=== PATIENT | female | born 2000 | race African-American/Black ===

== ENCOUNTER 2021-05-01 13:53 | Emergency (ER) | payer OTHER ==
[~2021-05-01] VITALS: Ht 160 cm; Wt 68.0 kg
[2021-05-01 14:15] LABS: URINE BILIRUBIN NEGATIVE (Negative); URINE BLOOD 2+ (Negative); URINE CLARITY CLEAR; URINE COLOR YELLOW; URINE GLUCOSE-RANDOM* NEGATIVE (Negative); URINE KETONES NEGATIVE (Negative); URINE LEUKOCYTES-REFLEX 1+ (Negative); URINE NITRITE-REFLEX NEGATIVE (Negative); URINE PROTEIN (DIPSTICK) NEGATIVE (Negative); URINE SPECIFIC GRAVITY >= 1.030 (1.005-1.035); URINE UROBILINOGEN 0.2 E.U./dl (0.2-1.0)
[2021-05-01 14:32] LABS: SQUAMOUS 4-10 Moderate /LPF (0-3); URINE WBC-REFLEX 0-5 Rare /HPF (0-5)
[2021-05-01 14:33] LABS: URINE RBC 1-2 Rare /HPF (NONE SEEN)
[2021-05-01 14:34] LABS: CASTS None Seen /LPF (None Seen); CRYSTALS None Seen /LPF (None Seen)
[2021-05-01 15:29] LABS: ABSOLUTE NEUTROPHILS 1.9 thou/uL (1.4-8.2); HEMOGLOBIN 12.6 gm/dL (12.0-15.0); LYMPHOCYTES 41.7 % (24.0-44.0); MONOCYTES 8.8 % (1.0-8.0)
[2021-05-01 15:31] LABS: BASOPHILS 0.8 % (0.0-2.0); HEMATOCRIT 38.7 % (37.0-47.0); MCH 27.7 pg (26.0-34.0); MCHC 32.5 g/dL (28.0-37.0); MCV 85.3 fL (80.0-100.0); PLATELET COUNT 122 thou/uL (150-400); POLYS 46.7 % (36.0-66.0); RBC 4.54 mil/uL (4.20-5.00); RDW 12.4 % (10.5-14.5)
[2021-05-01] MEDS ORDERED: CEPHALEXIN500 MG PO (15:34)
[2021-05-01 15:40] LABS: CALCIUM 8.8 mg/dL (8.5-10.1); CREATININE 0.7 mg/dL (0.6-1.0); POTASSIUM 3.8 mmol/L (3.5-5.1)
[2021-05-01 15:45] VITALS: BP 115/54
[2021-05-01 15:46] LABS: ALBUMIN 3.6 g/dL (3.4-5.0); TOTAL BILIRUBIN 0.2 mg/dL (0.2-1.0); TOTAL PROTEIN 7.3 g/dL (6.4-8.2)
== END 2021-05-01 15:45 | disposition home or self-care (01) ==
LOC: ER 13:53
PROVIDERS: Emergency Medicine
DX: N30.90 Cystitis, unspecified without hematuria (principal)